=== PATIENT | male | born 1945 | race Caucasian/White ===

== ENCOUNTER 2016-07-10 15:08 | Inpatient (IN) | payer MEDICARE, OTHER ==
--- NOTE | ~2016-07-10 | IDS ---
Interim Discharge Summary [facility] [address] [place]. [address] NAME: ALBERT BARNEY : 43 STATUS : DIS IN PAT#: [id number] AGE: 70 ADM/REG DATE : 07/10/16 MR#: [id number] REPORT SERV DATE: 07/18/16 DICTATED BY: DATE: REPORT STATUS : Draft TRANSCRIBED BY: MODL DATE: 07/17/16 ADMISSION DATE: 07/10/2016 DISCHARGE DATE: The patient is admitted to the [facility]. CONSULTANTS: Include Dr. Canela of Urology and Dr. Lyons of Infectious Disease. CURRENT DIAGNOSES: 1. Left-sided pyelonephritis-status post cystoscopy, retrograde pyelogram, double-J ureteral stent placement on 07/12/2016. 2. Extended-spectrum beta-lactamase Escherichia coli urinary tract infection-on meropenem, for additional ertapenem at discharge to continue through 07/26/2016 per Infectious Disease. 3. Extended-spectrum beta-lactamase Escherichia coli bacteremia. 4. Severe sepsis, present at admission, resolved. 5. Infectious/toxic metabolic encephalopathy-resolved. 6. Organic brain syndrome. 7. Acute kidney injury due to sepsis and left-sided hydroureter/hydronephrosis-resolved. 8. Bilateral pleural effusions following volume resuscitation-clinically asymptomatic. 9. Transaminitis-multiple medications on hold to include Lipitor, Lofibra. 10.Lipasemia-no radiographic evidence of acute intraabdominal process. 11.Hypothyroidism-normal TSH on current replacement. 12.History of thyroid cancer status post thyroidectomy and radiation. 13.History of prostate cancer status post prostatectomy. 14.Hypertension. 15.Hyperlipidemia. 16.Anemia. 17.Diarrhea-fecal white blood cell count and Clostridium difficile PCR negative. IMAGIN. CT abdomen and pelvis, 07/10/2016 shows mild left hydronephrosis and hydroureter with mild infiltration of peripelvic and periureteral fat planes, although no obstructing ureteral calculus or bladder masses identified. May represent inflammatory changes from an ascending urinary tract infection. Large hiatal hernia. Status post cholecystectomy and prostatectomy. 2. Renal ultrasound, 07/11/2016 for acute kidney injury shows minimal echogenic foci in the left kidney, may represent nonobstructing nephrolithiasis and/or calcific atherosclerosis. 3. KUB, 07/14/2016 for abdominal distention shows left double-J ureteral catheter in place. 4. Portable chest x-ray, 07/14/2016 for shortness of breath shows cardiomegaly. No acute process. 5. CT abdomen and pelvis, 07/14/2016 for elevated lipase shows new [id number] bilateral pleural effusions with bilateral lower lobe atelectasis. Large hiatal hernia with the upper third of the stomach residing intrathoracically. Fullness of the common Interim Discharge Summary [address] [address] NAME: ALBERT BARNEY : 43 STATUS : DIS IN PAT#: [id number] AGE: 70 ADM/REG DATE : 07/10/16 MR#: [id number] REPORT SERV DATE: 07/18/16 DICTATED BY: DATE: REPORT STATUS : Draft TRANSCRIBED BY: MODL DATE: 07/17/16 bile duct, measuring up to 9 mm in diameter. Likely to represent ductal ectasia in this post cholecystectomy patient. No obvious radiopaque obstructing stone identified. No intrahepatic biliary ductal dilatation. No gross CT evidence for acute pancreatitis. No peripancreatic inflammatory change or organized peripancreatic collection or pseudocyst. Interval placement of double-J ureteral stent in the left. No residual hydronephrosis or hydroureter. Status post prostatectomy, Correa catheter in the bladder. Bilateral fat containing inguinal hernias without bowel involvement. PERTINENT LABORATORY DATA: Procalcitonin has been elevated greater than 200 at admission, now 15. Bicarbonate values ranging from 19-24. Admission creatinine 3.07, currently 0.8. Glucose values have been mildly elevated during the admission. Electrolytes normal. Total bilirubin normal. Alkaline phosphatase initially 74, now 241. ALT initially normal, now 90. AST initially normal, now 98. Lipase elevated between 1282 and 4415 during the admission, currently 2624. TSH 0.476, free T4 1.89, lactate 1.5. Initial white blood cell count 20.6, currently 9.3; hemoglobin is 8.2; hematocrit 22.9; platelets 246. Flu swab negative. Admission urinalysis with red turbid urine, trace ketones, small leukocyte esterase, greater than 182 white blood cells with many clumps, 18 squamous epithelial cells. 52 hyaline casts. 176 red blood cells. Blood cultures x2 on 07/10/2016 grew extended- spectrum beta-lactamase producing E coli. Stool culture pending. Fecal leukocytes negative. C difficile PCR negative. Intraoperative urine culture shows sparse growth of extended-spectrum beta-lactamase E coli, and urine culture from the ER shows extended- spectrum beta-lactamase E coli. Subsequent blood cultures on 07/14/2016 and 07/14/2016 showed no growth of bacteria. Procedures include the aforementioned cystoscopy with left retrograde pyelogram and insertion of a double-J stent by Dr. Luís Canela on 07/12/2016. BRIEF HISTORY: For full details, please see the previously dictated history of present illness by Dr. Lorena Lafleur. This is a 70-year-old white male with past medical history of prostate cancer, status post prostatectomy, followed by urologist, Dr. Canela. About three days prior to this admission, the patient developed nausea, vomiting, and diarrhea with generalized weakness, decreased oral intake, decreased urinary output. He was seen at urgent care and diagnosed with a urinary tract infection and placed on Cipro. The patient was unable to take the medication due to nausea and vomiting. Temperature was progressively elevated up to 104 degrees with associated rigors and chills and delirium. The patient's sister brought him to the emergency department for further evaluation because of the confusion. In the emergency department, he was found to have leukocytosis, acute kidney injury, dehydration, lipasemia, and suspected urinary tract infection. He was admitted to the Hospitalist Service for further management. HOSPITAL COURSE: The patient was placed on empiric Rocephin, IV fluids. Blood cultures and urine cultures were obtained. Urology consultation was obtained. Within 24 hours of admission, his blood cultures became positive for gram-negative rods. His antibiotic was changed to cefepime at that point. Dr. Canela took the patient for a cystoscopy with retrograde pyelogram on 07/12/2016 to further evaluate left-sided hydronephrosis and hydroureter versus pyelonephritis. He could not find any specific stone or obstructing mass or stricture, but did find copious purulent drainage from the left kidney. This was Interim Discharge Summary [address] [address] NAME: ALBERT BARNEY : 43 STATUS : DIS IN PAT#: [id number] AGE: 70 ADM/REG DATE : 07/10/16 MR#: [id number] REPORT SERV DATE: 07/18/16 DICTATED BY: DATE: REPORT STATUS : Draft TRANSCRIBED BY: MODL DATE: 07/17/16 cultured and ended up growing extended-spectrum beta-lactamase E coli. This is the same pathogen that was isolated in his urine from the ER and two sets of blood cultures. When the culture showed extended-spectrum beta-lactamase E coli on 07/12/2016, the patient was changed to meropenem. Infectious Disease consultation was obtained, who agreed with the antibiotic choice and is in the process of recommending outpatient antibiotics and duration. The patient will likely be changed to ertapenem for ease of dosing, with a recommendation to continue treatment through 07/26/2016 for 14 days of total treatment. The patient's acute kidney injury resolved during the admission with IV fluids. In fact, subsequent imaging showed some evidence of pleural effusions in response to copious IV hydration, and the patient does have some trace bilateral lower extremity edema, which seems to be improving now that IV fluids have been discontinued. His infectious encephalopathy has resolved as well and he is at his baseline of some residual mental slowing since childhood. The patient's liver enzymes have been elevated slightly in the past few days, and his lipase has been elevated through the duration of this admission. The exact cause is unclear if he has had multiple CT scans of abdomen and pelvis, which do not demonstrate acute pancreatitis or other obstructive process. Suspect that the liver enzymes may be elevated due to the antibiotics and we will monitor closely. The elevated lipase could be due to a renal process or to sepsis itself, although it is somewhat unusual that it remains elevated as the patient has clinically improved. In discussion with the patient's sister, we would recommend completion of the antibiotic course. Then, repeat laboratories including liver enzymes and lipase, with potential for an outpatient MRCP after acute renal issues are resolved. The patient has been doing relatively well in the past few days, although did develop a loose stool after oral contrast for a CT scan. Stool was sent for fecal leukocytes and C difficile toxin and was negative. The patient has been recommended again to continue ertapenem for prolonged course. He was technically ready for discharge today, however, exact discharge disposition could not be determined. He was recommended to go to a usp facility for care of his PICC and for IV antibiotics, but his sister preferred to try to take him home. However, when the cost of home IV antibiotics was discussed, it was felt to be potentially cost prohibitive. As another option, Case Management is currently looking into the patient coming to the infusion center daily for IV antibiotic infusions. DISPOSITION: We would anticipate the patient will be discharged from the hospital when the discharge plan can be determined and the sister is agreeable. SNF placement would be in the patient's best interest currently. Regarding discharge medications-we would continue to hold any hepatotoxins at discharge, pending repeat labs as above, and possible MRCP in the outpatient setting. The patient does not currently have a primary care provider, but his sister intends to make an appointment for him with Dr. Srini Garcia. She also expressed interest in an outpatient sleep apnea evaluation at some point. Interim Discharge Summary [address] [place]. [address] NAME: ALBERT BARNEY : 43 STATUS : DIS IN PAT#: [id number] AGE: 70 ADM/REG DATE : 07/10/16 MR#: [id number] REPORT SERV DATE: 07/18/16 DICTATED BY: DATE: REPORT STATUS : Draft TRANSCRIBED BY: NORM DATE: 07/17/16 AKShane/NORM Shamar Owens M.D. / [id number] CC: Feliberto Keller M.D. Oliver Benton III, M.D.
--- NOTE | ~2016-07-10 | CN ---
Consultation Report [facility] [address] [place]. [address] NAME: ALBERT BARNEY : 43 STATUS : DIS IN PAT#: [id number] AGE: 70 ADM/REG DATE : 07/10/16 MR#: [id number] REPORT SERV DATE: 07/14/16 DICTATED BY: SAWYER DYER DATE: 07/13/16 REPORT STATUS : Draft TRANSCRIBED BY: MODKelby DATE: 07/13/16 DATE OF CONSULTATION: REASON FOR CONSULT: ESBL E coli septicemia. HISTORY OF PRESENT ILLNESS: This is a 70-year-old white male with history of prostatectomy for prostate cancer, thyroidectomy, and radiation therapy for thyroid cancer, mental retardation, who was admitted with altered mental status, fever, nausea, vomiting, and diarrhea. This started initially as I mentioned with nausea, vomiting, diarrhea, and weakness. Apparently, he went to a [facility], where he was prescribed Cipro for UTI. He then developed severe fever, chills, and then confusion. He was admitted on 07/10/2016. He had acute renal insufficiency with a creatinine of 3.0 and abnormal urinalysis with pyuria and hematuria. He was started on Rocephin. Blood and urine culture grew ESBL E coli resistant to Cipro. Antibiotics were changed on 07/11/2016 to cefepime. On the same day, a CT scan without contrast showed mild left hydronephrosis and hydroureter with surrounding inflammation and a large hiatal hernia. Yesterday, he was taken to the operating room for cystoscopy. He had phimosis. He had purulent, foul-smelling urine in the bladder, and purulent urine in the left kidney. There is some segmental dilatation of the left ureter. Ureteral stent and Correa catheter were placed. Today, he is afebrile. Lab work shows a WBC of 9, hemoglobin 8.5, creatinine 1.1. Lipase of 3500. The patient's sister is aware that he does not eat, although he is a picky eater. She thinks he has some shallow breaths and has some abdominal pain, which further reasoned for him not to eat. PAST MEDICAL HISTORY: As I mentioned above plus history of cholecystectomy, hiatal hernia, and hypertension. FAMILY HISTORY: Positive for cancer. SOCIAL HISTORY: His brother and sister take care of him. He does not work. ALLERGIES: NONE. MEDICATIONS ON ADMISSION: Vitamin D, Cipro, coenzyme Q10, fenofibrate, levothyroxine, lisinopril, probiotic, multivitamin with minerals, omeprazole, Crestor, alpha-lipoic acid, resveratrol, and some topical antibiotic to his penis. PHYSICAL EXAMINATION: GENERAL: On exam, he is awake. HEENT: He is edentulous. He has couple of small scabs over his lips and left nostril entry. Consultation Report [address] [place]. [address] NAME: ALBERT BARNEY : 43 STATUS : DIS IN PAT#: [id number] AGE: 70 ADM/REG DATE : 07/10/16 MR#: [id number] REPORT SERV DATE: 07/14/16 DICTATED BY: SAWYER DYER DATE: 07/13/16 REPORT STATUS : Draft TRANSCRIBED BY: NORM DATE: 07/13/16 LUNGS: Seem clear to auscultation anteriorly with decreased sounds. HEART: Regular rhythm. ABDOMEN: With hyperactive bowel sounds, some distention compressible. : Uncircumcised penis with a Correa catheter. The urine looks yellow. No rash is seen. No buttock decubitus is reported. ASSESSMENT AND PLAN: 1. Severe sepsis. 2. Extended-spectrum beta-lactamase Escherichia coli septicemia and urinary tract infection. 3. Possible mild left hydronephrosis status post cystoscopy with ureteral stent placement. 4. He might have some abdominal distention and pain. He has hyperactive bowel sounds. I am unclear what the source might be. The sister describes two formed stools today. His lipase is elevated, but I do not know if that is chronic. 5. He is edentulous, might have some labial HSV. I will request pureed diet. KUB x-ray, chest x-ray. Antibiotic reyes, we will plan two weeks of IV, ertapenem. Need to ensure proper urine flow per Dr. Canela. PC/MODL Sawyer Dyer M.D. / [id number] CC: Shamar Owens M.D.
--- NOTE | ~2016-07-10 | HP ---
History And Physical [place] [id number] [place]. [address] NAME: ALBERT BARNEY : 43 STATUS : DIS IN PAT#: [id number] AGE: 70 ADM/REG DATE : 07/10/16 MR#: [id number] REPORT SERV DATE: 07/10/16 DICTATED BY: JULIO ARAGON DATE: 07/10/16 REPORT STATUS : Draft TRANSCRIBED BY: NORM DATE: 07/10/16 DATE OF ADMISSION: 07/10/2016 CHIEF COMPLAINT: Nausea and vomiting. HISTORY OF PRESENT ILLNESS: A 70-year-old male with a past medical history of prostate cancer, status post prostatectomy, being followed by urologist, Dr. Canela. According to the patient's sister, who helps to care for him as well, the patient developed some nausea, vomiting, and diarrhea for approximately three days ago with generalized weakness and decreased oral intake. The patient was seen at [facility] diagnosed with a urinary tract infection yesterday and placed on Cipro. However, the patient has not been able to take those medications due to his nausea and vomiting. He had a temperature of 104 with rigors, chills, and also this morning awakened and did not recognize where he was. The patient does have some chronic mental slowing since childhood. Currently, at this time, after receiving IV fluids, the patient's mental status is currently at his baseline. However, due to high fever, he had some mental status changed this morning per his sister. Also, the sister states that it is hard to maneuver the patient now from sitting to standing due to his recent illness. REVIEW OF SYSTEMS: Please refer to HPI. PAST MEDICAL HISTORY: Prostate cancer, status post prostatectomy; thyroid cancer, status post thyroidectomy and radiation; hypertension; hyperlipidemia; and GERD. PAST SURGICAL HISTORY: As mentioned above and cholecystectomy. FAMILY HISTORY: Prostate cancer, father; adrenal cancer, brother. SOCIAL HISTORY: No tobacco, alcohol, or illicit drugs. Lives at home with his brother, but for the past few days, has been living with his sister. Usually able to care for himself with assistance from family. ALLERGIES: NO KNOWN ALLERGIES. HOME MEDICATIONS: Please refer to medication assistance reconciliation per pharmacy. PHYSICAL EXAMINATION: VITAL SIGNS: Temperature of 99; initial blood pressure was 93/58, currently at 128/61 with a pulse 95 to 113; respiration of 18 to 23; saturating 95%. GENERAL: The patient is alert and oriented according to his baseline. Currently in no distress except for complaints of chills. HEENT: Pupils equal, round, and reactive to light. Extraocular muscles are intact. Dry mucous membranes. CARDIOVASCULAR: S1, S2. Regular rate and rhythm. No murmurs, rubs, or gallops. No JVD. RESPIRATORY: Clear to auscultation bilaterally. No wheezes or crackles. No signs of History And Physical [address] [address] NAME: ALBERT BARNEY : 43 STATUS : DIS IN PAT#: [id number] AGE: 70 ADM/REG DATE : 07/10/16 MR#: [id number] REPORT SERV DATE: 07/10/16 DICTATED BY: JULIO ARAGON DATE: 07/10/16 REPORT STATUS : Draft TRANSCRIBED BY: NORM DATE: 07/10/16 tachypnea. ABDOMEN: Positive bowel sounds. Soft with mild suprapubic tenderness to palpation. No rebound. No abdominal distention. EXTREMITIES: 2+ pulse bilaterally. No edema. NEURO: Cranial nerves II through XII grossly intact. Moves all four extremities. No neuro focal deficits. LABORATORY DATA: Sodium 140, potassium 3.7 with a chloride of 103, bicarb of 23, BUN of 41, creatinine of 3.07, with a glucose of 120, T-bilirubin of 1.5, alkaline phosphatase of 74, ALT of 27, AST of 34, lipase of 1282. White cell count of 20.6, hemoglobin of 11.5, and platelet count 178. UA with a specific gravity of 1.025, trace of ketone, small amount of blood, positive leukocyte esterase, no nitrites, 176 red blood cells, and greater than 182 white blood cells. ASSESSMENT AND PLAN: 1. Sepsis with urinary tract infection. 2. Nausea, vomiting, and diarrhea. 3. Lipasemia. 4. Suspected urinary retention. 5. Acute kidney injury. 6. We will follow up with pending CT of the abdomen and pelvis ordered per ER staff. The patient does not have any epigastric discomfort to suggest pancreatitis, however, follow up with CT scan. Also, would check a postvoid residual for suspected urinary retention. Also order renal ultrasound for his acute kidney injury as well as hydration for his dehydration. We will continue with IV Rocephin for urinary tract infection, follow up with blood cultures and urine cultures. Also would check an influenza swab and also a portable chest x-ray for screening for his sepsis, although suspect more so urinary source at this time. The patient will be followed by Dr. Michele Villalta, who will attend to this patient's care. [facility]/MODL Julio Aragon M.D. / [id number] CC: Michele Villalta Jr, MD Oliver Benton III, M.D.
--- NOTE | ~2016-07-10 | DS ---
Discharge Summary [facility] [address] [place]. [address] NAME: ALBERT BARNEY : 43 STATUS : DIS IN PAT#: [id number] AGE: 70 ADM/REG DATE : 07/10/16 MR#: [id number] REPORT SERV DATE: 07/19/16 DICTATED BY: ROMERO THORPE DATE: 07/18/16 REPORT STATUS : Draft TRANSCRIBED BY: MODL DATE: 07/18/16 ADMISSION DATE: 07/10/2016 DISCHARGE DATE: 07/18/2016 DISCHARGE DIAGNOSES: 1. Left-sided pyelonephritis, status post cystectomy with retrograde pyelogram and double- J ureteral stent placement. 2. Extended-spectrum beta lactamase Escherichia coli urinary tract infection, currently on Merrem to be finishing a dose of ertapenem. 3. Escherichia coli bacteremia by extended-spectrum beta-lactamase. 4. Severe sepsis present on admission. 5. Infectious toxic metabolic encephalopathy, currently resolved. 6. Organic brain syndrome. 7. Acute kidney injury due to sepsis, now resolved. 8. Bilateral pleural effusions following volume resuscitation, clinically asymptomatic. 9. Transaminitis with multiple medications, stable at this time. 10.Hyperlipasemia. No radiographic evidence of acute intraabdominal process. 11.Hypothyroidism. 12.History of thyroid cancer, status post thyroidectomy and radiation. 13.History of prostate cancer, status post prostatectomy. 14.Hypertension. 15.Hyperlipidemia. 16.Anemia. 17.Diarrhea without C. difficile. IMAGING: Please refer to interim summary dictated by Dr. Owens on 07/17/2016. INVASIVE PROCEDURES: Cystoscopy with left retrograde pyelogram and insertion of a double-J stent by Dr. Luís Canela on 07/12/2016. AWNING INSTALLER: Sawyer Lyons M.D., of Infectious Disease. BRIEF HISTORY OF PRESENT ILLNESS: The patient is a 70-year-old male with past medical history of prostate cancer, status post prostatectomy followed by Urology, Dr. Canela, three days prior to admission developed nausea, vomiting, diarrhea, generalized weakness, decreased oral intake, decreased urinary output. He was seen at Urgent Care and diagnosed with urinary tract infection and placed on Cipro. The patient was unable to take the medication due to nausea, vomiting and then had a significantly elevated temperature. So he was brought to the hospital. For detailed history and physical exam, please see note dictated by Dr. Lorena Lafleur on 07/10/2016. HOSPITAL COURSE: After being admitted to the hospital, this patient was cared for by Dr. Lorena Owens. Please refer to interim summary dictated by Dr. Owens on 07/17/2016. I saw this patient again on 07/18/2016. This patient was doing relatively well. We had arranged for his rehab. His transaminitis has been stable. His lipasemia has improved. He remains to have Correa catheter which will stay in place until he sees Dr. Discharge Summary [facility] [address] [facility] [address] [facility] [address] NAME: ALBERT BARNEY : 43 STATUS : DIS IN PAT#: [id number] AGE: 70 ADM/REG DATE : 07/10/16 MR#: [id number] REPORT SERV DATE: 07/19/16 DICTATED BY: ROMREO THORPE DATE: 07/18/16 REPORT STATUS : Draft TRANSCRIBED BY: MODL DATE: 07/18/16 [place]. Once again, this patient is tolerating a diet. There is no evidence of any acute pancreatitis. No further workup was initiated and liver function study followup was recommended in the outpatient setting with a possible MRCP if necessary. Medically, this patient remained stable. He needs to finish a course of ertapenem through 07/21/2018. Again, he remained stable otherwise and is being discharged in stable condition. DISCHARGE DISPOSITION: To [facility] facility. DISCHARGE ACTIVITY: Per facility. DISCHARGE DIET: Low sodium, 1800-calorie [employer] Diet. DISCHARGE MEDICATIONS: Vitamin D 2000 units once daily, levothyroxine 100 mg Sunday, Sunday, and Sunday with 112 mcg on Sunday, Sunday, , and Sunday, Prilosec 20 mg once daily, Colace 100 mg twice daily, coenzyme Q10 100 mg once daily, Tylenol 1000 mg p.o. three times daily p.r.n., alpha-lipoic acid 1 tablet daily, probiotics 1 capsule daily, Resveratrol 1 tablet p.o. daily, ertapenem 1 g once daily IV to be continued through 07/26/2016, lisinopril 10 mg once daily, and multivitamins one tablet daily. DISCHARGE FOLLOWUP: With Dr. Luís Canela as scheduled by him with primary care physician post rehab. More than 30 minutes spent planning this patient's discharge, reconciling medications, discussing hospital care, and follow up with his sister and arranging proper disposition to [facility] facility and documenting this discharge. DEISI/NORM Romero Thorpe M.D. / [id number] CC: Romero Thorpe M.D.
--- NOTE | ~2016-07-10 | OP ---
Record Of Operation [facility] [address] [place]. [address] NAME: ALBERT BARNEY : 43 STATUS : DIS IN PAT#: [id number] AGE: 70 ADM/REG DATE : 07/10/16 MR#: [id number] REPORT SERV DATE: 07/12/16 DICTATED BY: LUÍS CHAMBERLAIN III DATE: 07/12/16 REPORT STATUS : Draft TRANSCRIBED BY: MODL DATE: 07/12/16 DATE OF PROCEDURE: 07/12/2016 PROCEDURE: Cystoscopy, left retrograde, insertion of double-J stent. PREOPERATIVE DIAGNOSIS: Mild left hydronephrosis, probable pyelonephritis, and UTI. POSTOPERATIVE DIAGNOSIS: Mild left hydronephrosis, probable pyelonephritis, and UTI. ANESTHESIA: General. SURGEON: Luís Chamberlain M.D. DESCRIPTION OF PROCEDURE: Following induction of adequate general anesthesia, the patient was placed in the dorsal lithotomy position, prepped, and draped in sterile fashion. The foreskin was phimotic. I was able to retract it enough to place the scope. The urethra was normal. The bladder neck was widely patent. The bladder was full of purulent foul-smelling urine. The bladder was drained. No tumors or stones were noted. Left retrograde showed some segmental dilatation in the left ureter and the kidney was not significantly dilated. A Pollack was placed into the renal pelvis and cloudy inflammatory urine with that was pink tinged, was obtained. This was sent for culture. The CT had shown stranding and mild hydronephrosis which may well just been hydro from pyelonephritis. I went ahead and placed a double-J stent and a urethral Correa. I will remove the stent in a week or two. It is unclear to me why he became septic from this other than the fact that he may not be emptying his bladder. There was no bladder neck contracture. There however is no bladder neck contracture to account for the UTI. We will continue his present therapy. OB/MODL Luís Chamberlain III, M.D. / [id number] CC: Shamar Owens M.D.
[2016-07-10 13:46] LABS: BASOPHILS 0 %; BASOPHILS ABSOLUTE 0.01 10/3/uL (0.0-0.16); EOSINOPHILS 0 %; ER CBC TAT 0 Hrs 09 Mins; HEMATOCRIT 32.6 % (40.0-51.0); HEMOGLOBIN 11.5 g/dL (13.6-17.8); IMMATURE GRANULOCYTES 1.3 %; IMMATURE GRANULOCYTES ABSOLUTE 0.27 10/3/uL (0.0-0.11); LYMPHOCYTES 6.5 %; LYMPHOCYTES ABSOLUTE 1.33 10/3/uL (0.67-4.30); MEAN CORPUS HGB CONC 35.3 g/dL (32.0-36.0); MEAN CORPUSCULAR HEMOGLOB 29.2 pg (26.0-34.0); MEAN CORPUSCULAR VOLUME 82.7 fL (80-100); MEAN PLATELET VOLUME 9.8 fL (9.2-13.0); MONOCYTES 8.4 %; MONOCYTES ABSOLUTE 1.73 10/3/uL (0.21-1.20); NEUTROPHILS 83.8 %; NEUTROPHILS ABSOLUTE 17.22 10/3/uL (2.02-8.40); PLATELET COUNT 178 10/3/uL (150-400); RED CELL COUNT 3.94 10/6/uL (4.7-6.1); WHITE BLOOD CELLS 20.6 10/3/uL (4.5-10.5)
[2016-07-10 13:47] LABS: MANUAL DIFF NO %
[2016-07-10 13:59] LABS: A/G RATIO 0.8 (0.7-1.9); ALBUMIN 2.8 G/DL (3.5-5.0); ALKALINE PHOSPHATASE 74 U/L (45-117); BUN (BLOOD UREA NITROGEN) 41 MG/DL (6-23); CALCIUM, SERUM 8.8 MG/DL (8.5-10.4); CHLORIDE, SERUM 103 MMOL/L (96-112); CO2 (CARBON DIOXIDE) 23 MMOL/L (24-34); CREATININE 3.07 MG/DL (0.70-1.30); GFR AFRICAN AMERICAN 23 ML/MIN (>=60); GFR NON AFRICAN AMERICAN 19 ML/MIN (>=60); GLOBULIN 3.6 G/DL (2.5-4.1); GLUCOSE, SERUM 120 MG/DL (60-99); POTASSIUM, SERUM 3.7 MMOL/L (3.5-5.3); SGOT(AST) 34 U/L (5-40); SGPT(ALT) 27 U/L (5-65); SODIUM, SERUM 140 MMOL/L (135-148); TOTAL BILIRUBIN 1.5 MG/DL (0-1.2); TOTAL PROTEIN 6.4 G/DL (6.0-8.5)
[2016-07-10 14:09] LABS: ASCORBIC ACID (UR NOT ORDER) 20 (NEG); BILIRUBIN, URINE SMALL (NEG); KETONE, URINE TRACE MG/DL (NEG); LEUKOCYTE ESTERASE(NOT OR SMALL (NEG); NITRITE (URINE) NEG (NEG)
[2016-07-10 14:11] LABS: ER URINALYSIS TAT 0 Hrs 32 Mins; WBC (NOT ORDERED) (RFLEX) > 182 (0-5)
[2016-07-10 16:07] LABS: LACTATE 1.5 MMOL/L (0.3-2.4)
[2016-07-10] MEDS ORDERED: PRILO PO (16:36)
[2016-07-10] MEDS ORDERED: PRIN10 PO (16:36)
[2016-07-10] MEDS ORDERED: CIP5 PO (16:36)
[2016-07-10] MEDS ORDERED: LEVOTHYROXIN100 MCG PO (16:38)
[2016-07-10] MEDS ORDERED: LEVOTHYROXIN112 MCG PO (16:39)
[2016-07-10] MEDS ORDERED: CRESTOR20 MG PO (16:40)
[2016-07-10] MEDS ORDERED: LOFIBRA54 MG PO (16:40)
[2016-07-10] MEDS ORDERED: ACET500CAP PO (16:41)
[2016-07-10] MEDS ORDERED: VITAMIN D2000 UNIT PO (16:43)
[2016-07-10] MEDS ORDERED: CENTRUM PO (16:43)
[2016-07-10] MEDS ORDERED: ALPHA LIPOIC ACID PO (16:44)
[2016-07-10] MEDS ORDERED: PROBIOTIC PO (16:44)
[2016-07-10] MEDS ORDERED: CO Q-10100 MG PO (16:45)
[2016-07-10] MEDS ORDERED: RESVERATROL PO (16:45)
[2016-07-10] MEDS ORDERED: ANTIBIOTIC TOP (16:46)
[2016-07-10 17:34] LABS: INFLUENZA A SCREEN NEGATIVE (NEGATIVE); INFLUENZA B SCREEN NEGATIVE (NEGATIVE)
[2016-07-10 18:04] LABS: PROCALCITONIN > 200.00 ng/mL (<0.5)
[2016-07-11 06:33] LABS: BASOPHILS 0 %; EOSINOPHILS 0 %; HEMOGLOBIN 9.2 g/dL (13.6-17.8); IMMATURE GRANULOCYTES 0.4 %; IMMATURE GRANULOCYTES ABSOLUTE 0.05 10/3/uL (0.0-0.11); LYMPHOCYTES 7.8 %; LYMPHOCYTES ABSOLUTE 1.01 10/3/uL (0.67-4.30); MEAN CORPUS HGB CONC 35.5 g/dL (32.0-36.0); MEAN CORPUSCULAR HEMOGLOB 29.5 pg (26.0-34.0); MEAN PLATELET VOLUME 9.5 fL (9.2-13.0); MONOCYTES 8.8 %; MONOCYTES ABSOLUTE 1.15 10/3/uL (0.21-1.20); NEUTROPHILS ABSOLUTE 10.79 10/3/uL (2.02-8.40); PLATELET COUNT 158 10/3/uL (150-400); RBC DISTRIBUTION WIDTH 16.3 % (12.0-16.0)
[2016-07-11 06:36] LABS: HEMATOCRIT 25.9 % (40.0-51.0); MANUAL DIFF NO %; RED CELL COUNT 3.12 10/6/uL (4.7-6.1)
[2016-07-11 06:48] LABS: CHLORIDE, SERUM 108 MMOL/L (96-112); CO2 (CARBON DIOXIDE) 21 MMOL/L (24-34); POTASSIUM, SERUM 3.3 MMOL/L (3.5-5.3); SGOT(AST) 21 U/L (5-40); SGPT(ALT) 21 U/L (5-65); SODIUM, SERUM 140 MMOL/L (135-148); TOTAL PROTEIN 5.5 G/DL (6.0-8.5)
[2016-07-11 06:52] LABS: A/G RATIO 0.6 (0.7-1.9); ALBUMIN 2.1 G/DL (3.5-5.0); ALKALINE PHOSPHATASE 61 U/L (45-117); BUN (BLOOD UREA NITROGEN) 35 MG/DL (6-23); CALCIUM, SERUM 7.6 MG/DL (8.5-10.4); CREATININE 1.96 MG/DL (0.70-1.30); GFR AFRICAN AMERICAN 39 ML/MIN (>=60); GFR NON AFRICAN AMERICAN 33 ML/MIN (>=60); GLOBULIN 3.4 G/DL (2.5-4.1); GLUCOSE, SERUM 168 MG/DL (60-99); TOTAL BILIRUBIN 0.7 MG/DL (0-1.2)
[2016-07-12 05:34] LABS: BASOPHILS 0 %; EOSINOPHILS 0.1 %; EOSINOPHILS ABSOLUTE 0.01 10/3/uL (0.0-0.53); HEMATOCRIT 26.1 % (40.0-51.0); HEMOGLOBIN 9.3 g/dL (13.6-17.8); IMMATURE GRANULOCYTES 0.5 %; IMMATURE GRANULOCYTES ABSOLUTE 0.06 10/3/uL (0.0-0.11); LYMPHOCYTES 8.4 %; LYMPHOCYTES ABSOLUTE 1.07 10/3/uL (0.67-4.30); MEAN CORPUS HGB CONC 35.6 g/dL (32.0-36.0); MEAN CORPUSCULAR HEMOGLOB 29.6 pg (26.0-34.0); MEAN CORPUSCULAR VOLUME 83.1 fL (80-100); MEAN PLATELET VOLUME 9.4 fL (9.2-13.0); MONOCYTES ABSOLUTE 1.28 10/3/uL (0.21-1.20); NEUTROPHILS ABSOLUTE 10.34 10/3/uL (2.02-8.40); PLATELET COUNT 165 10/3/uL (150-400); RBC DISTRIBUTION WIDTH 16.6 % (12.0-16.0); RED CELL COUNT 3.14 10/6/uL (4.7-6.1); WHITE BLOOD CELLS 12.8 10/3/uL (4.5-10.5)
[2016-07-12 05:38] LABS: MANUAL DIFF NO %
[2016-07-12 05:47] LABS: CALCIUM, SERUM 7.5 MG/DL (8.5-10.4); CHLORIDE, SERUM 106 MMOL/L (96-112); CO2 (CARBON DIOXIDE) 20 MMOL/L (24-34); GFR AFRICAN AMERICAN 56 ML/MIN (>=60); GFR NON AFRICAN AMERICAN 48 ML/MIN (>=60); GLUCOSE, SERUM 167 MG/DL (60-99); POTASSIUM, SERUM 3.5 MMOL/L (3.5-5.3); SODIUM, SERUM 136 MMOL/L (135-148)
[2016-07-12 05:48] LABS: BUN (BLOOD UREA NITROGEN) 27 MG/DL (6-23); CREATININE 1.45 MG/DL (0.70-1.30)
[2016-07-12 06:08] LABS: PROCALCITONIN 125.85 ng/mL (<0.5)
[2016-07-13 06:10] LABS: BASOPHILS 0.1 %; BASOPHILS ABSOLUTE 0.01 10/3/uL (0.0-0.16); EOSINOPHILS 0.1 %; EOSINOPHILS ABSOLUTE 0.01 10/3/uL (0.0-0.53); HEMATOCRIT 24.2 % (40.0-51.0); HEMOGLOBIN 8.5 g/dL (13.6-17.8); IMMATURE GRANULOCYTES 0.1 %; IMMATURE GRANULOCYTES ABSOLUTE 0.01 10/3/uL (0.0-0.11); LYMPHOCYTES 12.9 %; LYMPHOCYTES ABSOLUTE 1.19 10/3/uL (0.67-4.30); MEAN CORPUS HGB CONC 35.1 g/dL (32.0-36.0); MEAN CORPUSCULAR VOLUME 82.6 fL (80-100); MEAN PLATELET VOLUME 9.8 fL (9.2-13.0); MONOCYTES 14.3 %; MONOCYTES ABSOLUTE 1.32 10/3/uL (0.21-1.20); NEUTROPHILS 72.5 %; NEUTROPHILS ABSOLUTE 6.66 10/3/uL (2.02-8.40); PLATELET COUNT 152 10/3/uL (150-400); RED CELL COUNT 2.93 10/6/uL (4.7-6.1); WHITE BLOOD CELLS 9.2 10/3/uL (4.5-10.5)
[2016-07-13 06:19] LABS: MANUAL DIFF NO %
[2016-07-13 06:39] LABS: BUN (BLOOD UREA NITROGEN) 19 MG/DL (6-23); CALCIUM, SERUM 7.1 MG/DL (8.5-10.4); CHLORIDE, SERUM 103 MMOL/L (96-112); CO2 (CARBON DIOXIDE) 19 MMOL/L (24-34); FREE T4 1.89 NG/DL (0.76-1.46); GFR AFRICAN AMERICAN 78 ML/MIN (>=60); GFR NON AFRICAN AMERICAN 67 ML/MIN (>=60); GLUCOSE, SERUM 115 MG/DL (60-99); POTASSIUM, SERUM 3.7 MMOL/L (3.5-5.3); SODIUM, SERUM 135 MMOL/L (135-148); ULTRASENSITIVE TSH 0.476 MCIU/ML (0.358-3.740)
[2016-07-14 06:38] LABS: BASOPHILS 0.1 %; BASOPHILS ABSOLUTE 0.01 10/3/uL (0.0-0.16); EOSINOPHILS 0.1 %; EOSINOPHILS ABSOLUTE 0.01 10/3/uL (0.0-0.53); HEMATOCRIT 25.4 % (40.0-51.0); HEMOGLOBIN 8.8 g/dL (13.6-17.8); IMMATURE GRANULOCYTES 0.5 %; IMMATURE GRANULOCYTES ABSOLUTE 0.05 10/3/uL (0.0-0.11); LYMPHOCYTES 15.3 %; LYMPHOCYTES ABSOLUTE 1.67 10/3/uL (0.67-4.30); MEAN CORPUS HGB CONC 34.6 g/dL (32.0-36.0); MEAN CORPUSCULAR HEMOGLOB 28.7 pg (26.0-34.0); MEAN CORPUSCULAR VOLUME 82.7 fL (80-100); MEAN PLATELET VOLUME 10.1 fL (9.2-13.0); MONOCYTES 12.1 %; MONOCYTES ABSOLUTE 1.33 10/3/uL (0.21-1.20); NEUTROPHILS 71.9 %; NEUTROPHILS ABSOLUTE 7.88 10/3/uL (2.02-8.40); PLATELET COUNT 180 10/3/uL (150-400); RBC DISTRIBUTION WIDTH 17.1 % (12.0-16.0); RED CELL COUNT 3.07 10/6/uL (4.7-6.1)
[2016-07-14 06:57] LABS: ALBUMIN 1.7 G/DL (3.5-5.0); BUN (BLOOD UREA NITROGEN) 17 MG/DL (6-23); CALCIUM, SERUM 7.7 MG/DL (8.5-10.4); CHLORIDE, SERUM 105 MMOL/L (96-112); CO2 (CARBON DIOXIDE) 21 MMOL/L (24-34); CREATININE 1.04 MG/DL (0.70-1.30); GFR AFRICAN AMERICAN 83 ML/MIN (>=60); GFR NON AFRICAN AMERICAN 72 ML/MIN (>=60); GLUCOSE, SERUM 94 MG/DL (60-99); MANUAL DIFF NO %; PHOSPHORUS, SERUM 1.1 MG/DL (2.5-4.5); POTASSIUM, SERUM 3.9 MMOL/L (3.5-5.3); SODIUM, SERUM 137 MMOL/L (135-148)
[2016-07-15 07:37] LABS: HEMATOCRIT 25.3 % (40.0-51.0); HEMOGLOBIN 8.8 g/dL (13.6-17.8); MEAN CORPUS HGB CONC 34.8 g/dL (32.0-36.0); MEAN CORPUSCULAR VOLUME 83.5 fL (80-100); MEAN PLATELET VOLUME 9.3 fL (9.2-13.0); PLATELET COUNT 205 10/3/uL (150-400); RED CELL COUNT 3.03 10/6/uL (4.7-6.1); WHITE BLOOD CELLS 10.1 10/3/uL (4.5-10.5)
[2016-07-15 07:40] LABS: MANUAL DIFF YES %
[2016-07-15 07:50] LABS: ALBUMIN 1.7 G/DL (3.5-5.0); BUN (BLOOD UREA NITROGEN) 16 MG/DL (6-23); CALCIUM, SERUM 7.4 MG/DL (8.5-10.4); CHLORIDE, SERUM 106 MMOL/L (96-112); CO2 (CARBON DIOXIDE) 22 MMOL/L (24-34); CREATININE 0.91 MG/DL (0.70-1.30); GFR AFRICAN AMERICAN 98 ML/MIN (>=60); GFR NON AFRICAN AMERICAN 84 ML/MIN (>=60); GLUCOSE, SERUM 81 MG/DL (60-99); POTASSIUM, SERUM 3.7 MMOL/L (3.5-5.3); SODIUM, SERUM 139 MMOL/L (135-148)
[2016-07-15 08:01] LABS: PHOSPHORUS, SERUM 2.1 MG/DL (2.5-4.5)
[2016-07-15 08:10] LABS: ANISOCYTOSIS 1+ (5-10/OIF) (0-5/OIF); BAND NEUTROPHILS 2 %; LYMPHOCYTES 11 %; LYMPHOCYTES ABSOLUTE (CALC) 1.11 10/3/uL (0.67-4.30); MONOCYTES 5 %; MONOCYTES ABSOLUTE (CALC) 0.51 10/3/uL (0.21-1.20); NEUTROPHILS ABSOLUTE (CALC) 8.48 10/3/uL (2.02-8.40); PLATELET ESTIMATE ADQ (ADEQUATE); SEGMENTED NEUTROPHIL (0) 82 %; TOTAL NUCLEATED CELLS 100
[2016-07-15 08:34] LABS: PROCALCITONIN 15.63 ng/mL (<0.5)
[2016-07-16 05:22] LABS: BASOPHILS 0.1 %; BASOPHILS ABSOLUTE 0.01 10/3/uL (0.0-0.16); EOSINOPHILS 0.4 %; EOSINOPHILS ABSOLUTE 0.04 10/3/uL (0.0-0.53); HEMATOCRIT 23.3 % (40.0-51.0); HEMOGLOBIN 8.2 g/dL (13.6-17.8); IMMATURE GRANULOCYTES 0.7 %; IMMATURE GRANULOCYTES ABSOLUTE 0.06 10/3/uL (0.0-0.11); LYMPHOCYTES 16.6 %; LYMPHOCYTES ABSOLUTE 1.51 10/3/uL (0.67-4.30); MANUAL DIFF NO %; MEAN CORPUS HGB CONC 35.2 g/dL (32.0-36.0); MEAN CORPUSCULAR HEMOGLOB 29.2 pg (26.0-34.0); MEAN CORPUSCULAR VOLUME 82.9 fL (80-100); MEAN PLATELET VOLUME 9.3 fL (9.2-13.0); MONOCYTES 8.6 %; MONOCYTES ABSOLUTE 0.78 10/3/uL (0.21-1.20); NEUTROPHILS 73.6 %; NEUTROPHILS ABSOLUTE 6.72 10/3/uL (2.02-8.40); PLATELET COUNT 218 10/3/uL (150-400); RED CELL COUNT 2.81 10/6/uL (4.7-6.1); WHITE BLOOD CELLS 9.1 10/3/uL (4.5-10.5)
[2016-07-16 05:44] LABS: A/G RATIO 0.5 (0.7-1.9); ALBUMIN 1.6 G/DL (3.5-5.0); CALCIUM, SERUM 7.4 MG/DL (8.5-10.4); CHLORIDE, SERUM 107 MMOL/L (96-112); CO2 (CARBON DIOXIDE) 22 MMOL/L (24-34); GFR AFRICAN AMERICAN 104 ML/MIN (>=60); GFR NON AFRICAN AMERICAN 90 ML/MIN (>=60); GLOBULIN 3.5 G/DL (2.5-4.1); GLUCOSE, SERUM 89 MG/DL (60-99); POTASSIUM, SERUM 3.8 MMOL/L (3.5-5.3); SGOT(AST) 105 U/L (5-40); SGPT(ALT) 86 U/L (5-65); SODIUM, SERUM 140 MMOL/L (135-148); TOTAL BILIRUBIN 1.1 MG/DL (0-1.2); TOTAL PROTEIN 5.1 G/DL (6.0-8.5)
[2016-07-16 05:45] LABS: ALKALINE PHOSPHATASE 248 U/L (45-117); BUN (BLOOD UREA NITROGEN) 12 MG/DL (6-23)
[2016-07-17 05:03] LABS: BASOPHILS 0.1 %; BASOPHILS ABSOLUTE 0.01 10/3/uL (0.0-0.16); EOSINOPHILS ABSOLUTE 0.09 10/3/uL (0.0-0.53); HEMATOCRIT 23.9 % (40.0-51.0); HEMOGLOBIN 8.2 g/dL (13.6-17.8); IMMATURE GRANULOCYTES 0.6 %; IMMATURE GRANULOCYTES ABSOLUTE 0.06 10/3/uL (0.0-0.11); LYMPHOCYTES 21.4 %; MEAN CORPUS HGB CONC 34.3 g/dL (32.0-36.0); MEAN CORPUSCULAR HEMOGLOB 28.7 pg (26.0-34.0); MEAN CORPUSCULAR VOLUME 83.6 fL (80-100); MEAN PLATELET VOLUME 9.1 fL (9.2-13.0); MONOCYTES 8.7 %; MONOCYTES ABSOLUTE 0.81 10/3/uL (0.21-1.20); NEUTROPHILS 68.2 %; NEUTROPHILS ABSOLUTE 6.36 10/3/uL (2.02-8.40); PLATELET COUNT 246 10/3/uL (150-400); RBC DISTRIBUTION WIDTH 17.4 % (12.0-16.0); RED CELL COUNT 2.86 10/6/uL (4.7-6.1); WHITE BLOOD CELLS 9.3 10/3/uL (4.5-10.5)
[2016-07-17 05:15] LABS: MANUAL DIFF NO %
[2016-07-17 05:22] LABS: A/G RATIO 0.5 (0.7-1.9); ALBUMIN 1.7 G/DL (3.5-5.0); ALKALINE PHOSPHATASE 241 U/L (45-117); BUN (BLOOD UREA NITROGEN) 12 MG/DL (6-23); CALCIUM, SERUM 7.3 MG/DL (8.5-10.4); CHLORIDE, SERUM 109 MMOL/L (96-112); CO2 (CARBON DIOXIDE) 24 MMOL/L (24-34); CREATININE 0.81 MG/DL (0.70-1.30); GFR AFRICAN AMERICAN 104 ML/MIN (>=60); GFR NON AFRICAN AMERICAN 89 ML/MIN (>=60); GLOBULIN 3.6 G/DL (2.5-4.1); GLUCOSE, SERUM 100 MG/DL (60-99); POTASSIUM, SERUM 3.7 MMOL/L (3.5-5.3); SGOT(AST) 98 U/L (5-40); SGPT(ALT) 90 U/L (5-65); SODIUM, SERUM 142 MMOL/L (135-148); TOTAL BILIRUBIN 1.1 MG/DL (0-1.2); TOTAL PROTEIN 5.3 G/DL (6.0-8.5)
== END 2016-07-18 14:27 | DRG 871 ==
LOC: ER 15:08 → 4SO 17:54
PROVIDERS: Emergency Medicine; Hospitalist; Internal Medicine; Physician Assistant; Urology
DX: A41.51 Sepsis due to Escherichia coli [E. coli] (principal); G93.41 Metabolic encephalopathy; N17.9 Acute kidney failure, unspecified; N13.6 Pyonephrosis; J91.8 Pleural effusion in other conditions classified elsewhere; Z85.46 Personal history of malignant neoplasm of prostate; Z90.79 Acquired absence of other genital organ(s); Z85.850 Personal history of malignant neoplasm of thyroid; I10 Essential (primary) hypertension; K21.9 Gastro-esophageal reflux disease without esophagitis; E78.5 Hyperlipidemia, unspecified; Z92.3 Personal history of irradiation; R33.9 Retention of urine, unspecified; R65.20 Severe sepsis without septic shock; F79 Unspecified intellectual disabilities; Z16.39 Resistance to other specified antimicrobial drug; N47.1 Phimosis; K44.9 Diaphragmatic hernia without obstruction or gangrene; E89.0 Postprocedural hypothyroidism; F09 Unspecified mental disorder due to known physiological condition; Z90.49 Acquired absence of other specified parts of digestive tract; E86.0 Dehydration; D63.8 Anemia in other chronic diseases classified elsewhere; R79.89 Other specified abnormal findings of blood chemistry
CPT/HCPCS: 36569; 71010; 74000; 74176; 74178; 74420; 76775; 80048; 80053; 80069; 81001; 83605; 83690; 83735; 84145; 84439; 84443; 85025; 87015; 87040; 87045; 87046; 87046-59; 87070; 87075; 87077; 87086; 87102; 87116; 87150; 87186; 87205; 87493; 87493-59; 87804; 87899; 87899-59; 89055; 96374; 97110-GP; 97116-GP; 97161-GP; 99285; A9270-GY; C1751; C1769; C2617; G8978-CK-GP; G8979-CI-GP; J0692; J2185; J2405; J3010; Q9967